=== PATIENT | male | born 1940 | race Caucasian/White ===

== ENCOUNTER → 2021-03-16 | Day surgery (SDC) | payer OTHER ==
[~2021-03-16] MED LIST: AREDS PO; ASPIRIN81 MG PO; BACLOFEN 10MG T10 MG PO; RIZATRIPTAN10 MG PO; ULTRAM50 MG PO
[2021-03-16 10:47] LABS: HCT 45.8 % (42.0-52.0); HGB 15.7 g/dl (13.2-18.0); MCHC 34.3 g/dL (32.0-36.0); MCV 93.3 fL (78.0-100.0); MPV 10.4 fL (6.0-9.5); RBC 4.91 M/uL (4.70-6.00); WBC 9.4 K/uL (4.0-10.5)
[2021-03-16 10:55] LABS: ALBUMIN 3.7 g/dL (3.4-5.0); BILIRUBIN - TOTAL 1.1 mg/dL (0.2-1.0); BUN/CREAT RATIO (CALC) 17.9 RATIO; CREATININE 0.95 mg/dL (0.67-1.17); GLOBULIN (CALCULATION) 3.1 g/dL; POTASSIUM 4.3 mmol/L (3.5-5.1); TOTAL PROTEIN 6.8 g/dL (6.4-8.2)
== END | disposition home or self-care (01) ==
LOC: FAS 09:13
PROVIDERS: Surgery
DX: Z12.11 Encounter for screening for malignant neoplasm of colon (principal); D12.6 Benign neoplasm of colon, unspecified; K62.4 Stenosis of anus and rectum; Z20.822 Contact with and (suspected) exposure to COVID-19; Z90.49 Acquired absence of other specified parts of digestive tract; Z98.890 Other specified postprocedural states; Z88.0 Allergy status to penicillin
CPT/HCPCS: 36415; 80053; 88305; 93005; J1610; J2704; J7120

== ENCOUNTER → 2021-07-18 | Day surgery (SDC) | payer OTHER ==
[~2021-07-18] VITALS: Ht 172.7 cm; Wt 86.4 kg
[2021-07-18 08:56] LABS: BUN/CREAT RATIO (CALC) 13.7 RATIO; CREATININE 1.17 mg/dL (0.67-1.17); POTASSIUM 4.4 mmol/L (3.5-5.1)
[2021-07-18 09:07] LABS: HCT 45.6 % (42.0-52.0); HGB 15.2 g/dl (13.2-18.0); MCH 31.3 pg (25.0-31.0); MCHC 33.3 g/dL (32.0-36.0); MCV 93.8 fL (78.0-100.0); MPV 11.4 fL (6.0-9.5); RBC 4.86 M/uL (4.70-6.00); RDW 12.7 % (11.5-14.0); WBC 6.9 K/uL (4.0-10.5)
== END | disposition home or self-care (01) ==
LOC: FAS 07:28
PROVIDERS: Surgery
DX: D12.8 Benign neoplasm of rectum (principal); G43.909 Migraine, unspecified, not intractable, without status migrainosus; G25.81 Restless legs syndrome; G47.33 Obstructive sleep apnea (adult) (pediatric); Z88.0 Allergy status to penicillin; Z79.82 Long term (current) use of aspirin; Z79.899 Other long term (current) drug therapy
CPT/HCPCS: 36415; 80048; 88305; J1610; J2250; J2704; J7120